=== PATIENT | female | born 1960 | race Asian ===

== ENCOUNTER → 2016-06-24 | Outpatient (CLI) | payer OTHER ==
[~2016-06-24] VITALS: Ht 160 cm; Wt 56.5 kg
[~2016-06-24] MED LIST: AMLO-511 PO; CALC1TAB PO; CYAN1TAB44 PO; LORA10TA7 PO; MONT10TA21 PO; MULT1CAP32 PO; OMEG300C3 PO
[2016-06-24 13:58] VITALS: BP 136/81
== END | disposition home or self-care (01) ==
LOC: SRCNTR 13:19
PROVIDERS: ATTEND Internal Medicine Critical Care Medicine
DX: I10 Essential (primary) hypertension (principal); R05 Cough; J30.9 Allergic rhinitis, unspecified
CPT/HCPCS: G0463

== ENCOUNTER → 2016-07-13 | Outpatient (CLI) | payer OTHER ==
[~2016-07-13] MED LIST changes: -OMEG300C3 PO
== END | disposition home or self-care (01) ==
LOC: RESP 13:18
PROVIDERS: ATTEND Internal Medicine Critical Care Medicine
DX: R05 Cough (principal)
CPT/HCPCS: 94010; 94726; 94727; 94729

== ENCOUNTER → 2016-08-10 | Outpatient (CLI) | payer OTHER ==
[~2016-08-10] VITALS: Ht 160 cm; Wt 56.0 kg
[2016-08-10 12:36] VITALS: BP 124/73
== END | disposition home or self-care (01) ==
LOC: SRCNTR 12:23
PROVIDERS: ATTEND Internal Medicine Critical Care Medicine
DX: I10 Essential (primary) hypertension (principal); R05 Cough; R09.82 Postnasal drip; J30.9 Allergic rhinitis, unspecified
CPT/HCPCS: G0463